=== PATIENT | male | born 1940 | race Caucasian/White ===

== ENCOUNTER 2020-04-28 14:06 | Inpatient (IN) | payer OTHER ==
[~2020-04-28] VITALS: Ht 185.4 cm; Wt 94.3 kg
[~2020-04-28 14:06] MED LIST: ASPIR 8181 MG PO; B COMPLEX1 EAC1 PO; CRESTOR10 MG PO; FISH OIL 1,001000 M2; FLOMAX0.4 MG PO; LANTUS100 UNIT/M SUBQ; METFORMIN HCL500 MG PO; NOVOLOG100 UNIT/1 SUBQ; RED YEAST RICE600 M1 PO; TRICOR145 MG PO; UNICOMPLEX M TA1 TA1 PO; VITAMIN D2000 UNIT PO; VITAMIN E400 UNIT PO; VITAMINC500 PO
[2020-04-28 14:10] VITALS: BP 181/98
[2020-04-28 15:55] LABS: ABSOLUTE NEUTROPHILS 7.8 thou/uL (1.4-8.2); BASOPHILS 0.4 % (0.0-2.0); EOSINOPHILS 0.8 % (0.0-3.0); HEMATOCRIT 43.1 % (42.0-52.0); HEMOGLOBIN 14.6 gm/dL (14.0-18.0); LYMPHOCYTES 26.9 % (24.0-44.0); MCH 36.8 pg (26.0-34.0); MCV 108.4 fL (80.0-100.0); MONOCYTES 7.7 % (1.0-8.0); PLATELET COUNT 438 thou/uL (150-400); POLYS 64.2 % (36.0-66.0); RBC 3.98 mil/uL (4.50-6.00); RDW 13.6 % (10.5-14.5); WBC 12.1 thou/uL (4.0-11.0)
[2020-04-28 16:22] LABS: ANION GAP 10 mmol/L (7-16); BUN 21 mg/dL (7-18); CALCIUM 9.3 mg/dL (8.5-10.1); CHLORIDE 101 mmol/L (98-107); CO2 27 mmol/L (21-32); GLUCOSE 69 mg/dL (74-106); POTASSIUM 3.8 mmol/L (3.5-5.1); SODIUM 138 mmol/L (136-145)
[2020-04-28 16:33] LABS: ALBUMIN 3.9 g/dL (3.4-5.0); SGOT 33 U/L (15-37); SGPT 36 U/L (16-63); TOTAL BILIRUBIN 0.5 mg/dL (0.2-1.0); TOTAL PROTEIN 7.4 g/dL (6.4-8.2); TROPONIN-I <0.06 ng/mL (<0.06)
[2020-04-28 16:49] LABS: URINE BILIRUBIN NEGATIVE (Negative); URINE BLOOD NEGATIVE (Negative); URINE CLARITY CLEAR; URINE COLOR YELLOW; URINE GLUCOSE-RANDOM* NEGATIVE (Negative); URINE KETONES NEGATIVE (Negative); URINE LEUKOCYTES-REFLEX NEGATIVE (Negative); URINE NITRITE-REFLEX NEGATIVE (Negative); URINE PROTEIN (DIPSTICK) NEGATIVE (Negative); URINE UROBILINOGEN 0.2 E.U./dl (0.2-1.0)
[2020-04-28 16:58] LABS: APTT 28.7 Seconds (24.5-32.8); INR 1.1; PROTIME 11.4 Seconds (9.3-11.4)
[2020-04-28 17:43] LABS: MACROCYTES 2+
[2020-04-28 19:40] VITALS: BP 158/82
[2020-04-28] MEDS ORDERED: VITAMIN B-121000 MC2 SUBLING (19:43)
[2020-04-28] MEDS ORDERED: ELIQUIS5 MG PO (19:44)
[2020-04-28] MEDS ORDERED: FERROUS GLUCON324 M3 PO (19:45)
[2020-04-28] MEDS ORDERED: FLONASE 0.05%50 MCG NASAL (19:45)
[2020-04-28] MEDS ORDERED: CLARITIN10 M3 PO (19:46)
[2020-04-28] MEDS ORDERED: TOPROL XL50 MG PO (19:47)
[2020-04-28 19:51] VITALS: BP 158/82
[2020-04-28 21:00] VITALS: BP 150/60
[2020-04-28 23:38] VITALS: BP 162/77
[2020-04-29 03:55] VITALS: BP 135/48
[2020-04-29 05:16] LABS: CHOLESTEROL 117 mg/dL (<200); HDL CHOLESTEROL 33 mg/dL (>40); LDL CHOLESTEROL 63 mg/dL (<100); TC:HDL 3.5 Ratio (Not establshd); TRIGLYCERIDE 106 mg/dL (<150); VLDL 21 mg/dL (<40)
[2020-04-29 05:18] LABS: SERUM ASSESSMENT Slight Lipemia
[2020-04-29 07:25] VITALS: BP 133/65
[2020-04-29 09:34] LABS: HEMATOCRIT 41.6 % (42.0-52.0); HEMOGLOBIN 13.9 gm/dL (14.0-18.0); MCH 36.7 pg (26.0-34.0); MCHC 33.4 g/dL (28.0-37.0); MCV 109.7 fL (80.0-100.0); RBC 3.79 mil/uL (4.50-6.00); RDW 14.3 % (10.5-14.5); WBC 7.4 thou/uL (4.0-11.0)
[2020-04-29 09:43] LABS: MAGNESIUM 1.8 mg/dL (1.8-2.4); POTASSIUM 3.7 mmol/L (3.5-5.1)
[2020-04-29] MEDS ORDERED: LANTUS100 UNIT/M SUBQ (12:07)
--- NOTE | 2020-04-29 12:13 | NUR ---
RECEIVED PT'S CARE AROUND 0710; PT. ON BED; ALERT; DURING AM ASSESSMENT PT. AOX4; NO C/O PAIN; AFIB ON THE MONITOR; AM MEDICATIONS GIVEN; EDUCATED ABOUT FALL PRECAUTIONS; ST. UNDERSTANDING; DURING THE AFTERNOON BG ON THE 200s; PHYSICIAN NOTIFIED; ORDERS ON PLACED; D/C ORDERS ON PLACED; PT. NOTIFIED; WILL WORK ON D/C PAPERS;
[2020-04-29 12:14] VITALS: BP 135/63
[2020-04-29 12:37] VITALS: BP 135/63
--- NOTE | 2020-04-30 06:38 | NUR ---
PATIENT D/C PRIOR TO OT EVAL
--- NOTE | 2020-04-30 07:23 | EKG ---
[address] [address] ELECTROCARDIOGRAM REPORT Name: CHRISTINA NARAYAN Farooq Room #: 211-P [facility] M.R.#: [id number] Admission: 04/28/20 Attend Phys: Ike Brown MD Discharge: 04/29/20 Date of : 38 Report #: [id number] 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 04/30/20 0723 D: [id number] Alex Hernandez MD, FACC /EPI
== END 2020-04-29 13:24 | disposition home or self-care (01) | DRG 637 ==
LOC: ER 14:06 → EROBS 19:05 → 2N 19:58
PROVIDERS: Emergency Medicine; ADMIT Internal Medicine; ATTEND Internal Medicine
DX: E11.649 Type 2 diabetes mellitus with hypoglycemia without coma (principal); G93.41 Metabolic encephalopathy; R53.1 Weakness; G45.9 Transient cerebral ischemic attack, unspecified; I48.91 Unspecified atrial fibrillation; I10 Essential (primary) hypertension; E78.5 Hyperlipidemia, unspecified; I25.10 Atherosclerotic heart disease of native coronary artery without angina pectoris; Z96.1 Presence of intraocular lens; Z96.652 Presence of left artificial knee joint; Z86.73 Personal history of transient ischemic attack (TIA), and cerebral infarction without residual deficits; Z79.01 Long term (current) use of anticoagulants; Z79.4 Long term (current) use of insulin; Z79.899 Other long term (current) drug therapy; Z79.82 Long term (current) use of aspirin
CPT/HCPCS: 10081